=== PATIENT | male | born 1975 | race Caucasian/White ===

== ENCOUNTER → 2023-01-11 23:59 | Outpatient (RCR) | payer OTHER, BC, SELFPAY | END | disposition home or self-care (01) | PROVIDERS: PCP Physician Assistant Medical; Visit Provider Physician Assistant Medical | DX: R53.83 Other fatigue (principal); M62.81 Muscle weakness (generalized); Z51.89 Encounter for other specified aftercare | CPT/HCPCS: 97110; 97535 ==

== ENCOUNTER 2023-12-11 12:05 | Outpatient (CLI) | payer OTHER, SELFPAY | END 2023-12-11 12:06 | disposition home or self-care (01) | PROVIDERS: PCP Physician Assistant Medical; Visit Provider Otolaryngology | DX: R22.0 Localized swelling, mass and lump, head (principal) | CPT/HCPCS: 84443; 86039; 86431; 86618 ==